=== PATIENT | female | born 1990 | race American Indian/Alaskan Native ===

== ENCOUNTER 2016-08-24 08:54 | Emergency (ER) | payer MEDICAID, OTHER ==
[2016-08-24 09:29] VITALS: BP 141/84
--- NOTE | 2016-08-24 09:39 | Emergency Department Report ---
Chief Complaint: Fall Stated Complaint: RT LEG PAIN Time Seen by Provider: 08/24/16 09:36 - HPI History of Present Illness: Patient here reported that she fell and injured her right leg and now she is having pain. - ROS Review of Systems: All systems are negative unless stated in HPI above. - Exam Vital Signs: Vital Signs 08/24/16 09:24 Temperature 98.6 F Pulse Rate 81 Respiratory 16 Rate Blood Pressure 141/84 O2 Sat by Pulse 100 Oximetry Physical Exam: General: This is a 26-year-old female well-nourished well-developed in no acute distress. EXT: No clubbing cyanosis or edema +2 pulses in all extremities. No neurovascular compromise. Patient limping and tender to palpate to right mid to upper leg. MSE screening note: Focused history and physical exam performed. Due to findings the following was ordered: ED Medical Decision Making - Medical Decision Making MDM: Patient taken to fast track room #37. Awaiting x-ray. Patient was seen by MSE provider and screened. ED Disposition for MSE Condition: Stable
--- NOTE | 2016-08-24 10:12 | Emergency Department Report ---
HPI - General Chief Complaint: Fall Time Seen by Provider: 08/24/16 09:36 - HPI HPI: She is a 26-year-old female presents to ED complaining of right anterior leg pain times today. Patient states she was at home today when she tripped over her child's toy. Patient states she fell forward and twisted her leg. Patient states pain is localized to right hurtado area. Patient denies calf tenderness bilaterally.Patient describes pain as throbbing in nature. She reports last menstrual period was 08/10/2016 states she is not Patient denies fevers/chills/nausea/vomiting/abdominal pain or any other problems. ED Past Medical Hx - Past Medical History Previous Medical History?: Yes Hx Arthritis: Yes Additional medical history: ARTHRITIS BOTH HIPS, SCOLIOSIS, Childbirth x 2 - Surgical History Past Surgical History?: Yes Additional Surgical History: C SECTION x 2 - Social History Smoking Status: Never Smoker Substance Use Type: Alcohol, Non Opiate Pain - Medications Home Medications: Home Medications Medication Instructions Recorded Confirmed Last Taken Type Hyoscyamine Subl [Levsin Sl] 0.125 mg SL Q4HR PRN #12 tablet 06/25/13 Unknown Rx Promethazine [Phenergan] 25 mg PO Q6H PRN #12 tablet 06/25/13 Unknown Rx metroNIDAZOLE [Metrogel] 60 gm TP BID 7 Days 09/02/14 Unknown Rx Cyclobenzaprine [Flexeril] 10 mg PO QHS PRN #16 tablet 08/24/16 Unknown Rx Ibuprofen [Motrin] 800 mg PO Q8HR PRN #30 tablet 08/24/16 Unknown Rx ED Review of Systems ROS: Stated complaint: RT LEG PAIN Other details as noted in HPI Constitutional: denies: chills, fever Eyes: denies: eye pain, eye discharge, vision change ENT: denies: ear pain, throat pain, dental pain, hearing loss Respiratory: denies: cough, shortness of breath, wheezing Cardiovascular: denies: chest pain, palpitations Endocrine: no symptoms reported Gastrointestinal: denies: abdominal pain, nausea, diarrhea Genitourinary: denies: urgency, dysuria, discharge Musculoskeletal: denies: back pain, joint swelling, arthralgia Skin: denies: rash, lesions Neurological: denies: headache, weakness, paresthesias Psychiatric: denies: anxiety, depression Hematological/Lymphatic: denies: easy bleeding, easy bruising Physical Exam - Physical Exam Vital Signs: Vital Signs 08/24/16 09:24 Temperature 98.6 F Pulse Rate 81 Respiratory 16 Rate Blood Pressure 141/84 O2 Sat by Pulse 100 Oximetry Physical Exam: GENERAL: Alert and oriented x3, no apparent distress, Normal Gait, atraumatic. HEAD: Head is normocephalic and a-traumatic. EYES: Extra ocular muscles are intact. Pupils are equal, round, and reactive to light and accommodation. NOSE: Nose symetrical, Nontender,Nares appeared normal. NECK: Supple. Non edematous, No carotid bruits. No lymphadenopathy or thyromegaly. No C-spine tenderness LUNGS: Symetrical with respiration, No wheezing, no rales or crackles, CTAB. HEART: S1, S2 present, regular rate and rhythm without murmur, no rubs, no gallops. ABDOMEN: No organomegaly was noted,Positive bowel sounds, soft, and non- distended. . Nontender to palpation on all Quadrants, NO CVA tenderness. EXTREMITIES/MUSCULOSKELETAL: No cyanosis, clubbing, rash, lesions or edema. Full ROM bilaterally. Pedal Pulses 2+ bilaterally. LE 5+ strength bilaterally , straight leg raise negative bilaterally. Tenderness bilaterally. Mild tenderness to palpation of right hurtado. Knee joint is intact. Ankle joint is intact with full range of motion. NEUROLOGIC: No focal Deficit, Cranial nerves II through XII are grossly intact. No loss of sensation, SKIN: Warm and dry, No lesions, No ulceration or induration present. ED Course Vital Signs 08/24/16 09:24 Temperature 98.6 F Pulse Rate 81 Respiratory 16 Rate Blood Pressure 141/84 O2 Sat by Pulse 100 Oximetry ED Medical Decision Making - Radiology Data Radiology results: report reviewed, image reviewed RIGHT TIBIA/FIBULA: History: Right leg pain after fall AP and lateral views of the right tibia/fibula demonstrate normal mineralization and contours for this patient's age. No destructive changes are noted and the adjacent soft tissues are normal. IMPRESSION: Unremarkable right tibia/fibula. Transcribed By: TTR Dictated By: VANI MENDOZA JR, MD Electronically Authenticated By: VANI MENDOZA JR, MD Signed Date/Time: 08/24/16 1042 - Medical Decision Making 26-year-old female presents with leg pain status post fall ED course: X-ray ordered. Patient received 800 mg of Motrin and Flexeril ED. X-ray result shows no acute fracture or dislocation joints intact. Discussed findings with patient. Discussed the patient follow up with primary care physician. Vital signs are stable patient is in no acute distress Patient understands instructions given. Critical care attestation.: If time is entered above; I have spent that time in minutes in the direct care of this critically ill patient, excluding procedure time. ED Disposition Clinical Impression: Myalgia Fall Qualifiers: Encounter type: initial encounter Qualified Code(s): W19.XXXA - Unspecified fall, initial encounter Disposition: DISCHARGED TO HOME OR SELFCARE Is pt being admited?: No Does the pt Need Aspirin: No Condition: Stable Instructions: Trigger Point Pain (ED), Musculoskeletal Pain (ED), Heat Pack Application (ED) Prescriptions: Cyclobenzaprine [Flexeril] 10 mg PO QHS PRN #16 tablet PRN Reason: Muscle Spasm Ibuprofen [Motrin] 800 mg PO Q8HR PRN #30 tablet PRN Reason: Pain Referrals: PRIMARY CARE, [Primary Care Provider] - 3-5 Days [facility] [Outside] - 3-5 Days [facility] [Outside] - 3-5 Days Forms: Accompanied Note, Work/School Release Form(ED) Time of Disposition: 10:40
[2016-08-24] MEDS ORDERED: MOTRIN PO ONE (10:42)
[2016-08-24] MEDS ORDERED: FLEXERIL PO ONE (10:42)
--- NOTE | 2016-08-24 10:50 | XRay Report ---
RIGHT TIBIA/FIBULA: History: Right leg pain after fall AP and lateral views of the right tibia/fibula demonstrate normal mineralization and contours for this patient's age. No destructive changes are noted and the adjacent soft tissues are normal. IMPRESSION: Unremarkable right tibia/fibula.
== END 2016-08-24 11:32 | disposition home or self-care (01) ==
LOC: ED 08:54
DX: M79.661 Pain in right lower leg (principal); M19.90 Unspecified osteoarthritis, unspecified site; W01.198A Fall on same level from slipping, tripping and stumbling with subsequent striking against other object, initial encounter; Y93.89 Activity, other specified; Y92.89 Other specified places as the place of occurrence of the external cause; Y99.8 Other external cause status; Z91.018 Allergy to other foods; Z88.8 Allergy status to other drugs, medicaments and biological substances; Z88.1 Allergy status to other antibiotic agents

== ENCOUNTER 2016-10-13 13:53 | Emergency (ER) | payer OTHER ==
[2016-10-13 15:56] VITALS: BP 130/84
--- NOTE | 2016-10-13 16:24 | Emergency Department Report ---
Entered by GRISELDA ROJAS, acting as scribe for MALATHI CASTELLON NP. ED General Adult HPI - General Chief complaint: Skin Rash Stated complaint: RASH UNDER BREAST/RT EAR PAIN Time Seen by Provider: 10/13/16 15:52 Source: patient Mode of arrival: Ambulatory Limitations: No Limitations - History of Present Illness Initial comments: 26 y/o female, c/o painful, spreading rash under the breast bilaterally for 1 week, no aggravating or alleviating factors, constant since onset, moderate in severity. Associated throat pain and right ear pain also beginning 1 week ago but denies fever, nausea, vomiting, and drainage from the rash or her ear. Patient works at an [employer], requiring her to walk around outside for long periods during the day -: week(s) (1) Location: head (right ear pain), chest (rash) Radiation: non-radiation Consistency: constant Improves with: none Worsens with: none Associated Symptoms: rash, other (ear pain). denies: chest pain, fever/chills, headaches, loss of appetite, nausea/vomiting, shortness of breath Treatments Prior to Arrival: none - Related Data Previous Rx's Medication Instructions Recorded Last Taken Type Hyoscyamine Subl [Levsin Sl] 0.125 mg SL Q4HR PRN #12 tablet 06/25/13 Unknown Rx Promethazine [Phenergan] 25 mg PO Q6H PRN #12 tablet 06/25/13 Unknown Rx metroNIDAZOLE [Metrogel] 60 gm TP BID 7 Days 09/02/14 Unknown Rx Cyclobenzaprine [Flexeril] 10 mg PO QHS PRN #16 tablet 08/24/16 Unknown Rx Ibuprofen [Motrin] 800 mg PO Q8HR PRN #30 tablet 08/24/16 Unknown Rx Azithromycin [Zithromax] 250 mg PO DAILY #6 tablet 10/13/16 Unknown Rx Ibuprofen [Motrin] 600 mg PO Q8H PRN #15 tablet 10/13/16 Unknown Rx Nystatin [Nystop Powder] 1 applicatio TP TID 7 Days 10/13/16 Unknown Rx Allergies Allergy/AdvReac Type Severity Reaction Status Date / Time amoxicillin [Amoxicillin] Allergy Swelling Verified 10/13/16 15:57 diphenhydramine HCl Allergy Swelling Verified 10/13/16 15:57 [From Benadryl] shellfish derived AdvReac Rash Verified 10/13/16 15:57 PEANUT BUTTER Allergy Swelling Uncoded 10/13/16 15:57 TOMATOES Allergy Swelling Uncoded 10/13/16 15:57 ED Review of Systems Comment: All other systems reviewed and negative Constitutional: denies: chills, fever Eyes: denies: eye pain, eye discharge ENT: ear pain (right ear), throat pain. denies: hearing loss Respiratory: denies: cough, shortness of breath, wheezing Cardiovascular: denies: chest pain Gastrointestinal: denies: abdominal pain, nausea, vomiting, diarrhea Genitourinary: denies: abnormal menses (lmp 1 week ago ) Musculoskeletal: denies: back pain Skin: rash (under the breast bilaterally) Neurological: denies: headache, weakness, numbness ED Past Medical Hx - Past Medical History Hx Arthritis: Yes Additional medical history: ARTHRITIS BOTH HIPS, SCOLIOSIS, Childbirth x 2 - Surgical History Additional Surgical History: C SECTION x 2 - Social History Smoking Status: Never Smoker Substance Use Type: Alcohol, Non Opiate Pain - Medications Home Medications: Home Medications Medication Instructions Recorded Confirmed Last Taken Type Hyoscyamine Subl [Levsin Sl] 0.125 mg SL Q4HR PRN #12 tablet 06/25/13 Unknown Rx Promethazine [Phenergan] 25 mg PO Q6H PRN #12 tablet 06/25/13 Unknown Rx metroNIDAZOLE [Metrogel] 60 gm TP BID 7 Days 09/02/14 Unknown Rx Cyclobenzaprine [Flexeril] 10 mg PO QHS PRN #16 tablet 08/24/16 Unknown Rx Ibuprofen [Motrin] 800 mg PO Q8HR PRN #30 tablet 08/24/16 Unknown Rx Azithromycin [Zithromax] 250 mg PO DAILY #6 tablet 10/13/16 Unknown Rx Ibuprofen [Motrin] 600 mg PO Q8H PRN #15 tablet 10/13/16 Unknown Rx Nystatin [Nystop Powder] 1 applicatio TP TID 7 Days 10/13/16 Unknown Rx ED Physical Exam - General Limitations: No Limitations General appearance: alert, in no apparent distress - Head Head exam: Present: atraumatic, normocephalic, normal inspection - Eye Eye exam: Present: normal appearance, PERRL, EOMI. Absent: conjunctival injection Pupils: Present: normal accommodation - ENT ENT exam: Present: normal orophraynx, mucous membranes moist, normal external ear exam, other (L TM WNL ). Absent: TM's normal bilaterally - Expanded ENT Exam Expanded Ear exam: Absent: auricular trauma TM/Canal exam: Erythema: Right TM, Effusion: Right TM, Loss of Landmarks: Right TM Mouth exam: Absent: drooling, trismus Throat exam: Positive: normal inspection. Negative: tonsillar erythema, tonsillomegaly, tonsillar exudate - Neck Neck exam: Present: normal inspection, full ROM. Absent: tenderness, meningismus, lymphadenopathy - Respiratory Respiratory exam: Present: normal lung sounds bilaterally. Absent: respiratory distress, wheezes, decreased breath sounds - Cardiovascular Cardiovascular Exam: Present: regular rate, normal rhythm, normal heart sounds. Absent: rubs, gallop - GI/Abdominal GI/Abdominal exam: Present: soft, normal bowel sounds. Absent: distended, tenderness, diminished bowel sounds - Extremities Exam Extremities exam: Present: normal inspection, full ROM, normal capillary refill. Absent: tenderness - Back Exam Back exam: Present: normal inspection, full ROM. Absent: tenderness, CVA tenderness (R), CVA tenderness (L), paraspinal tenderness, vertebral tenderness - Neurological Exam Neurological exam: Present: alert, oriented X3, normal gait - Psychiatric Psychiatric exam: Present: normal affect, normal mood. Absent: depressed - Skin Skin exam: Present: warm, intact, rash (under the breast), erythema (excoriated rash under both breasts, no vesicles, no urtircaria ) ED Course Vital Signs 10/13/16 15:53 Temperature 98.3 F Pulse Rate 71 Respiratory 17 Rate Blood Pressure 130/84 O2 Sat by Pulse 100 Oximetry - Reevaluation(s) Reevaluation #1: 10/13/16 16:22 PT aware of dx and plan of care. pt has no questions at this time. - Pulse Oximetry Interpretation Digit-Finger Initial Pulse Oximetry Readin Actions Taken: none ED Medical Decision Making - Differential Diagnosis om, oe, cerumen, shingles, candidasis Critical Care Time: No ED Disposition Clinical Impression: Candidiasis of breast Right otitis media Qualifiers: Otitis media type: unspecified Chronicity: unspecified Qualified Code(s): H66.91 - Otitis media, unspecified, right ear Disposition: DC-01 TO HOME OR SELFCARE Is pt being admited?: No Does the pt Need Aspirin: No Condition: Stable Instructions: Diaper Rash (ED), Otitis Media (ED), Acute Rash (ED) Additional Instructions: keep the skin under your breasts clean and dry follow up with your PCP in 3-5 days Return to the ED for worsening or concerns Prescriptions: Azithromycin [Zithromax] 250 mg PO DAILY #6 tablet Ibuprofen [Motrin] 600 mg PO Q8H PRN #15 tablet PRN Reason: Pain Nystatin [Nystop Powder] 1 applicatio TP TID 7 Days Referrals: ROBERTO FLORES MD [Staff Physician] - 3-5 Days Forms: Work/School Release Form(ED) Time of Disposition: 16:23 This documentation as recorded by the BOB scott MATHEW,accurately reflects the service I personally performed and the decisions made by ,MALATHI CASTELLON, [employer].
== END 2016-10-13 16:46 | disposition home or self-care (01) ==
LOC: ED 13:53
DX: H66.91 Otitis media, unspecified, right ear (principal); B37.89 Other sites of candidiasis; M41.9 Scoliosis, unspecified; M19.90 Unspecified osteoarthritis, unspecified site; Z88.1 Allergy status to other antibiotic agents; Z88.8 Allergy status to other drugs, medicaments and biological substances; Z91.018 Allergy to other foods
CPT/HCPCS: 99282

== ENCOUNTER 2017-03-23 23:31 | Emergency (ER) | payer OTHER ==
--- NOTE | 2017-03-24 02:46 | Emergency Department Report ---
ED General Adult HPI - General Chief complaint: Allergic Reaction Stated complaint: ALLERGIC REACTION Time Seen by Provider: 03/24/17 02:30 Source: patient Mode of arrival: Ambulatory Limitations: No Limitations - History of Present Illness Initial comments: Patient is a 26-year-old female no significant past medical history who presents with allergic reaction. Patient was seen by her PCP for a UTI and was given nitrofurantoin for she states that when she took the nitrofurantoin she started getting a swollen throat and she was having pain all over her body. Patient states that she has no shortness of breath or any chest pain patient's symptoms are moderate she is complaining of sore throat and myalgias she says the myalgias are a 6 out of 10 at the makes it better or worse. Severity scale (0 -10): 10 - Related Data Previous Rx's Medication Instructions Recorded Last Taken Type Hyoscyamine Subl [Levsin Sl] 0.125 mg SL Q4HR PRN #12 tablet 06/25/13 Unknown Rx Promethazine [Phenergan] 25 mg PO Q6H PRN #12 tablet 06/25/13 Unknown Rx metroNIDAZOLE [Metrogel] 60 gm TP BID 7 Days gel..gram. 09/02/14 Unknown Rx Cyclobenzaprine [Flexeril] 10 mg PO QHS PRN #16 tablet 08/24/16 Unknown Rx Ibuprofen [Motrin] 800 mg PO Q8HR PRN #30 tablet 08/24/16 Unknown Rx Azithromycin [Zithromax] 250 mg PO DAILY #6 tablet 10/13/16 Unknown Rx Ibuprofen [Motrin] 600 mg PO Q8H PRN #15 tablet 10/13/16 Unknown Rx Nystatin [Nystop Powder] 1 applicatio TP TID 7 Days bottle 10/13/16 Unknown Rx Famotidine [Pepcid] 20 mg PO QDAY #5 tablet 03/24/17 Unknown Rx Sulfamethoxazole/Trimethoprim 1 each PO BID #10 tablet 03/24/17 Unknown Rx [Bactrim DS TAB] predniSONE [Deltasone] 20 mg PO QDAY #5 tab 03/24/17 Unknown Rx Allergies Allergy/AdvReac Type Severity Reaction Status Date / Time amoxicillin [Amoxicillin] Allergy Swelling Verified 10/13/16 15:57 diphenhydramine HCl Allergy Swelling Verified 10/13/16 15:57 [From Benadryl] shellfish derived AdvReac Rash Verified 10/13/16 15:57 PEANUT BUTTER Allergy Swelling Uncoded 10/13/16 15:57 TOMATOES Allergy Swelling Uncoded 10/13/16 15:57 ED Review of Systems ROS: Stated complaint: ALLERGIC REACTION Other details as noted in HPI Constitutional: denies: chills, fever Eyes: denies: eye pain, eye discharge, vision change ENT: throat pain. denies: ear pain Respiratory: denies: cough, shortness of breath, wheezing Cardiovascular: denies: chest pain, palpitations Endocrine: no symptoms reported Gastrointestinal: denies: abdominal pain, nausea, diarrhea Genitourinary: denies: urgency, dysuria, discharge Musculoskeletal: myalgia. denies: back pain, joint swelling, arthralgia Skin: denies: rash, lesions Neurological: denies: headache, weakness, paresthesias Psychiatric: denies: anxiety, depression Hematological/Lymphatic: denies: easy bleeding, easy bruising ED Past Medical Hx - Past Medical History Previous Medical History?: Yes Hx Arthritis: Yes Additional medical history: ARTHRITIS BOTH HIPS, SCOLIOSIS, Childbirth x 2 - Surgical History Past Surgical History?: Yes Additional Surgical History: C SECTION x 2 - Social History Smoking Status: Never Smoker Substance Use Type: None - Medications Home Medications: Home Medications Medication Instructions Recorded Confirmed Last Taken Type Hyoscyamine Subl [Levsin Sl] 0.125 mg SL Q4HR PRN #12 tablet 06/25/13 Unknown Rx Promethazine [Phenergan] 25 mg PO Q6H PRN #12 tablet 06/25/13 Unknown Rx metroNIDAZOLE [Metrogel] 60 gm TP BID 7 Days gel..gram. 09/02/14 Unknown Rx Cyclobenzaprine [Flexeril] 10 mg PO QHS PRN #16 tablet 08/24/16 Unknown Rx Ibuprofen [Motrin] 800 mg PO Q8HR PRN #30 tablet 08/24/16 Unknown Rx Azithromycin [Zithromax] 250 mg PO DAILY #6 tablet 10/13/16 Unknown Rx Ibuprofen [Motrin] 600 mg PO Q8H PRN #15 tablet 10/13/16 Unknown Rx Nystatin [Nystop Powder] 1 applicatio TP TID 7 Days bottle 10/13/16 Unknown Rx Famotidine [Pepcid] 20 mg PO QDAY #5 tablet 03/24/17 Unknown Rx Sulfamethoxazole/Trimethoprim 1 each PO BID #10 tablet 03/24/17 Unknown Rx [Bactrim DS TAB] predniSONE [Deltasone] 20 mg PO QDAY #5 tab 03/24/17 Unknown Rx ED Physical Exam - General Limitations: No Limitations ED Course Vital Signs 03/23/17 03/23/17 03/24/17 23:35 23:47 01:42 Temperature 98.3 F 98.3 F 100.2 F H Pulse Rate 89 89 94 H Respiratory 18 18 15 Rate Blood Pressure 148/89 Blood Pressure 148/89 124/67 [Right] O2 Sat by Pulse 99 99 100 Oximetry 03/24/17 03/24/17 03/24/17 01:55 02:20 02:26 Temperature Pulse Rate 100 H 115 H Respiratory 15 19 25 H Rate Blood Pressure Blood Pressure [Right] O2 Sat by Pulse 100 99 99 Oximetry 03/24/17 03/24/17 03/24/17 02:30 02:36 02:40 Temperature Pulse Rate 107 H 109 H 109 H Respiratory 19 21 19 Rate Blood Pressure 134/72 134/72 Blood Pressure [Right] O2 Sat by Pulse 100 100 99 Oximetry 03/24/17 03/24/17 03/24/17 02:45 02:50 02:56 Temperature Pulse Rate 109 H 109 H 108 H Respiratory 13 13 17 Rate Blood Pressure 126/73 126/73 126/73 Blood Pressure [Right] O2 Sat by Pulse 100 99 100 Oximetry 03/24/17 03/24/17 03/24/17 03:00 03:06 03:18 Temperature Pulse Rate 112 H 117 H Respiratory 22 21 Rate Blood Pressure 126/73 127/67 127/67 Blood Pressure [Right] O2 Sat by Pulse 99 99 Oximetry 03/24/17 03/24/17 03/24/17 03:20 03:26 03:30 Temperature Pulse Rate 109 H 110 H 110 H Respiratory 15 17 20 Rate Blood Pressure 126/72 126/72 127/67 Blood Pressure [Right] O2 Sat by Pulse 100 99 100 Oximetry 03/24/17 03/24/17 03/24/17 03:36 03:40 03:46 Temperature Pulse Rate 105 H 107 H 111 H Respiratory 20 19 24 Rate Blood Pressure 127/67 127/67 127/67 Blood Pressure [Right] O2 Sat by Pulse 100 100 100 Oximetry 03/24/17 03/24/17 03/24/17 03:50 03:56 04:00 Temperature Pulse Rate 139 H 105 H 106 H Respiratory 17 19 19 Rate Blood Pressure 127/67 127/67 127/67 Blood Pressure [Right] O2 Sat by Pulse 99 100 100 Oximetry 03/24/17 03/24/17 03/24/17 04:06 04:10 04:15 Temperature Pulse Rate 120 H 109 H 111 H Respiratory 17 20 19 Rate Blood Pressure 127/67 132/68 129/73 Blood Pressure [Right] O2 Sat by Pulse 100 100 100 Oximetry 03/24/17 03/24/17 03/24/17 04:20 04:22 04:24 Temperature Pulse Rate 110 H 109 H 112 H Respiratory 20 20 19 Rate Blood Pressure 129/73 129/73 129/73 Blood Pressure [Right] O2 Sat by Pulse 100 100 100 Oximetry 03/24/17 03/24/17 03/24/17 04:26 04:28 04:30 Temperature Pulse Rate 110 H 118 H 110 H Respiratory 20 21 19 Rate Blood Pressure 129/73 129/73 128/77 Blood Pressure [Right] O2 Sat by Pulse 100 100 99 Oximetry 03/24/17 03/24/17 03/24/17 04:32 04:34 04:36 Temperature Pulse Rate 111 H 119 H 112 H Respiratory 19 17 19 Rate Blood Pressure 128/77 128/77 128/77 Blood Pressure [Right] O2 Sat by Pulse 100 100 100 Oximetry 03/24/17 03/24/17 03/24/17 04:38 04:40 04:42 Temperature Pulse Rate 112 H 118 H 111 H Respiratory 20 17 20 Rate Blood Pressure 128/77 128/77 128/77 Blood Pressure [Right] O2 Sat by Pulse 100 99 100 Oximetry 03/24/17 03/24/17 03/24/17 04:44 04:46 04:48 Temperature Pulse Rate 112 H 114 H 111 H Respiratory 19 19 20 Rate Blood Pressure 128/77 129/66 129/66 Blood Pressure [Right] O2 Sat by Pulse 100 100 99 Oximetry 03/24/17 03/24/17 03/24/17 04:50 04:52 04:54 Temperature Pulse Rate 113 H 112 H 113 H Respiratory 21 19 19 Rate Blood Pressure 129/66 129/66 129/66 Blood Pressure [Right] O2 Sat by Pulse 100 100 100 Oximetry 03/24/17 04:58 Temperature 98.6 F Pulse Rate 113 H Respiratory 19 Rate Blood Pressure Blood Pressure 129/60 [Right] O2 Sat by Pulse 99 Oximetry ED Medical Decision Making - Lab Data Result diagrams: 03/24/17 03:00 03/24/17 03:00 Lab Results 03/24/17 03/24/17 Range/Units 03:00 03:00 WBC 5.5 (4.5-11.0) K/mm3 RBC 5.04 H (3.65-5.03) M/mm3 Hgb 11.2 (10.1-14.3) gm/dl Hct 35.6 (30.3-42.9) % MCV 71 L (79-97) fl MCH 22 L (28-32) pg MCHC 31 (30-34) % RDW 15.1 (13.2-15.2) % Plt Count 159 (140-440) K/mm3 Add Manual Diff Complete Total Counted 100 Seg Neutrophils % Analyst Seg Neuts % (Manual) 87.0 H (40.0-70.0) % Band Neutrophils % 7.0 % Lymphocytes % (Manual) 5.0 L (13.4-35.0) % Reactive Lymphs % (Man) 0 % Monocytes % (Manual) 1.0 (0.0-7.3) % Eosinophils % (Manual) 0 (0.0-4.3) % Basophils % (Manual) 0 (0.0-1.8) % Metamyelocytes % 0 % Myelocytes % 0 % Promyelocytes % 0 % Blast Cells % 0 % Nucleated RBC % Not Reportable Seg Neutrophils # Man 4.8 (1.8-7.7) K/mm3 Band Neutrophils # 0.4 K/mm3 Lymphocytes # (Manual) 0.3 L (1.2-5.4) K/mm3 Abs React Lymphs (Man) 0.0 K/mm3 Monocytes # (Manual) 0.1 (0.0-0.8) K/mm3 Eosinophils # (Manual) 0.0 (0.0-0.4) K/mm3 Basophils # (Manual) 0.0 (0.0-0.1) K/mm3 Metamyelocytes # 0.0 K/mm3 Myelocytes # 0.0 K/mm3 Promyelocytes # 0.0 K/mm3 Blast Cells # 0.0 K/mm3 WBC Morphology Not Reportable Hypersegmented Neuts Not Reportable Hyposegmented Neuts Not Reportable Hypogranular Neuts Not Reportable Smudge Cells Not Reportable Toxic Granulation Not Reportable Toxic Vacuolation Not Reportable Dohle Bodies Not Reportable Pelger-Huet Anomaly Not Reportable Stanford Rods Not Reportable Platelet Estimate Consistent w auto Clumped Platelets Not Reportable Plt Clumps, EDTA Not Reportable Large Platelets Not Reportable Giant Platelets Not Reportable Platelet Satelliting Not Reportable Plt Morphology Comment Not Reportable RBC Morphology Not Reportable Dimorphic RBCs Not Reportable Polychromasia Not Reportable Hypochromasia 1+ Poikilocytosis Not Reportable Anisocytosis 1+ Microcytosis Not Reportable Macrocytosis Not Reportable Spherocytes Not Reportable Pappenheimer Bodies Not Reportable Sickle Cells Not Reportable Target Cells Not Reportable Tear Drop Cells Not Reportable Ovalocytes Not Reportable Helmet Cells Not Reportable Mag[place] Bodies Not Reportable Macon Rings Not Reportable Penelope Cells Not Reportable Bite Cells Not Reportable Crenated Cell Not Reportable Elliptocytes Few Acanthocytes (Spur) Not Reportable Rouleaux Not Reportable Hemoglobin C Crystals Not Reportable Schistocytes Not Reportable Malaria parasites Not Reportable Herbie Bodies Not Reportable Hem Pathologist Commnt No Sodium 138 (137-145) mmol/L Potassium 3.8 (3.6-5.0) mmol/L Chloride 102.7 (98-107) mmol/L Carbon Dioxide 20 L (22-30) mmol/L Anion Gap 19 mmol/L BUN 17 (7-17) mg/dL Creatinine 0.5 L (0.7-1.2) mg/dL Estimated GFR > 60 ml/min BUN/Creatinine Ratio 34 % Glucose 130 H (65-100) mg/dL Calcium 8.7 (8.4-10.2) mg/dL Total Bilirubin 0.60 (0.1-1.2) mg/dL AST 77 H (5-40) units/L ALT 63 H (7-56) units/L Alkaline Phosphatase 65 (35-129) units/L Total Protein 7.3 (6.3-8.2) g/dL Albumin 4.0 (3.9-5) g/dL Albumin/Globulin Ratio 1.2 % - Medical Decision Making Medical diagnosis: Allergic reaction differential medical diagnoses: Anaphylactoid reaction, angioedema, hyponatremia , peripheral edema, UTI Patient IV fluids and IV Pepcid IV steroids and oral Bactrim and I'll get CBC, CMP and monitor Patient is feeling better after fluids patient's tachycardia has resolved patient states she will follow-up with her primary care doctor and gave patient an additional verbal discharge instructions. Critical care attestation.: If time is entered above; I have spent that time in minutes in the direct care of this critically ill patient, excluding procedure time. ED Disposition Clinical Impression: Throat pain Allergic reaction Qualifiers: Encounter type: initial encounter Qualified Code(s): T78.40XA - Allergy, unspecified, initial encounter Disposition: TO HOME OR SELFCARE Is pt being admited?: No Does the pt Need Aspirin: No Condition: Stable Instructions: Urticaria (ED), Anaphylaxis (ED), Allergies (ED) Prescriptions: Famotidine [Pepcid] 20 mg PO QDAY #5 tablet predniSONE [Deltasone] 20 mg PO QDAY #5 tab Sulfamethoxazole/Trimethoprim [Bactrim DS TAB] 1 each PO BID #10 tablet Referrals: KRYSTEN MOORE MD [Primary Care Provider] - 3-5 Days Forms: Work/School Release Form(ED)
[2017-03-24] MEDS ORDERED: PEPCID IV ONE (02:49)
[2017-03-24] MEDS ORDERED: NACL 0.9% 1000 ML 1,000 ML IV ONE ×2 (02:49→04:38)
[2017-03-24 03:17] LABS: Hematocrit 35.6 % (30.3-42.9); Hemoglobin 11.2 gm/dl (10.1-14.3); Mean Corpuscular HGB Conc 31 % (30-34); Mean Corpuscular Hemoglobin 22 pg (28-32); Mean Corpuscular Volume 71 fl (79-97); Platelet Count 159 K/mm3 (140-440); Red Blood Count 5.04 M/mm3 (3.65-5.03); Red Cell Distribution Width 15.1 % (13.2-15.2); White Blood Count 5.5 K/mm3 (4.5-11.0)
[2017-03-24 03:34] LABS: Alanine Aminotransferase 63 units/L (7-56); Albumin/Globulin Ratio 1.2 %; Alkaline Phosphatase 65 units/L (35-129); Anion Gap 19 mmol/L; BUN/Creatinine Ratio 34; Blood Urea Nitrogen 17 mg/dL (7-17); Calcium 8.7 mg/dL (8.4-10.2); Carbon Dioxide 20 mmol/L (22-30); Chloride 102.7 mmol/L (98-107); Glucose 130 mg/dL (65-100); Potassium 3.8 mmol/L (3.6-5.0); Sodium 138 mmol/L (137-145); Total Protein 7.3 g/dL (6.3-8.2)
[2017-03-24 04:13] LABS: Anisocytosis 1+; Basophils % (Manual) 0 % (0.0-1.8); Blastocytes % (Manual) 0 %; Diff Status Complete; Elliptocytes Few; Eosinophils % (Manual) 0 % (0.0-4.3); Hypochromasia 1+; Platelet Estimate Consistent w Auto
[2017-03-24] MEDS ORDERED: TORADOL IV ONE (04:22)
[2017-03-24 04:59] VITALS: BP 129/60
[2017-03-24] MEDS ORDERED: BACTRIM DS PO ONE (05:13)
== END 2017-03-24 05:48 | disposition home or self-care (01) ==
LOC: ED 23:31
DX: T78.40XA Allergy, unspecified, initial encounter (principal); R07.0 Pain in throat; M19.90 Unspecified osteoarthritis, unspecified site; Z88.1 Allergy status to other antibiotic agents; Z91.010 Allergy to peanuts; Z91.013 Allergy to seafood; Z91.018 Allergy to other foods; X58.XXXA Exposure to other specified factors, initial encounter
CPT/HCPCS: 36415; 80053; 85007; 85025; 96361; 96374; 96375; 99283; J1885; J2930; J7030

== ENCOUNTER 2017-07-14 21:47 | Emergency (ER) | payer OTHER ==
[2017-07-14 23:58] VITALS: BP 134/84
[2017-07-15] MEDS ORDERED: MOTRIN PO ONE (03:37)
[2017-07-15] MEDS ORDERED: DECADRON IM ONE (03:37)
--- NOTE | 2017-07-15 03:41 | Emergency Department Report ---
ED Rash HPI - HPI Chief Complaint: Skin Rash Stated Complaint: LT ARM SWELLING Time Seen by Provider: 07/15/17 03:26 Duration: 1 week Location: Upper Extremities (left) Suspected Cause: Unknown Rash Symptoms: Yes Itching, No Facial Swelling, No Tongue/Oral Swelling, No Breathing Difficulties, No Choking Sensation, No Wheezing/Dyspnea, No Peeling, No Blistering, No Fever, No Lightheaded, No Malaise, No Myalgias Severity: severe Other History: 27-year-old -[place] female comes in for complaint of redness and tenderness lesions to her left upper arm 1 week. Patient thinks that she's gotten bitten by insect while doing a home visit for taxes. Patient reports he has multiple allergies. She is allergic to penicillin and Benadryl shellfish. Patient reports a past medical history of rheumatoid arthritis. She takes no medications she's denied any chest pain shortness of breathing difficulty swallowing nausea vomiting. ED Review of Systems ROS: Stated complaint: LT ARM SWELLING Other details as noted in HPI Constitutional: denies: chills, fever Eyes: denies: eye pain, eye discharge, vision change ENT: denies: ear pain, throat pain Respiratory: denies: cough, shortness of breath, wheezing Cardiovascular: denies: chest pain, palpitations Endocrine: no symptoms reported Gastrointestinal: denies: abdominal pain, nausea, diarrhea Genitourinary: denies: urgency, dysuria, discharge Musculoskeletal: denies: back pain, joint swelling, arthralgia Skin: lesions (left upper arm). denies: rash Neurological: denies: headache, weakness, paresthesias Psychiatric: denies: anxiety, depression Hematological/Lymphatic: denies: easy bleeding, easy bruising ED Past Medical Hx - Past Medical History Hx Arthritis: Yes Additional medical history: ARTHRITIS BOTH HIPS, SCOLIOSIS, - Surgical History Additional Surgical History: C SECTION x 2 - Social History Smoking Status: Never Smoker Substance Use Type: None, Alcohol - Medications Home Medications: Home Medications Medication Instructions Recorded Confirmed Last Taken Type Hyoscyamine Subl [Levsin Sl] 0.125 mg SL Q4HR PRN #12 tablet 06/25/13 Unknown Rx Promethazine [Phenergan] 25 mg PO Q6H PRN #12 tablet 06/25/13 Unknown Rx metroNIDAZOLE [Metrogel] 60 gm TP BID 7 Days gel..gram. 09/02/14 Unknown Rx Cyclobenzaprine [Flexeril] 10 mg PO QHS PRN #16 tablet 08/24/16 Unknown Rx Ibuprofen [Motrin] 800 mg PO Q8HR PRN #30 tablet 08/24/16 Unknown Rx Azithromycin [Zithromax] 250 mg PO DAILY #6 tablet 10/13/16 Unknown Rx Nystatin [Nystop Powder] 1 applicatio TP TID 7 Days bottle 10/13/16 Unknown Rx Famotidine [Pepcid] 20 mg PO QDAY #5 tablet 03/24/17 Unknown Rx Sulfamethoxazole/Trimethoprim 1 each PO BID #10 tablet 03/24/17 Unknown Rx [Bactrim DS TAB] Ibuprofen [Motrin 600 MG tab] 600 mg PO Q8H PRN #15 tablet 07/15/17 Unknown Rx predniSONE [Deltasone] 20 mg PO QDAY #5 tab 07/15/17 Unknown Rx Rash Exam - Exam General: Vital signs noted. No distress. Alert and acting appropriately. HEENT: No Periorbital Edema, No Conjuctival Injection, No Chemosis, No Perioral Edema, No Tongue Edema, No Uvular Edema, No Compromised Airway, No Drooling Lungs: Yes Good Air Exchange, No Wheezes, No Ronchi, No Stridor, No Cough, No Labored Respirations, No Retractions, No Use of Accessory Muscles, No Other Abnormal Lung Sounds Heart: Yes Regular, No Murmur Skin: Yes Tenderness, Yes Erythema, Yes Edema, No Urticarial Rash, No Maculopapular Rash, No Morbilliform rash, No Encrustations, No Other Other: Positive: Abdomen Normal, Neurologic Normal, Musculoskeletal Normal ED Course Vital Signs 07/14/17 23:52 Temperature 98.2 F Pulse Rate 95 H Respiratory 16 Rate Blood Pressure 134/84 O2 Sat by Pulse 100 Oximetry ED Medical Decision Making - Medical Decision Making Patient has been evaluated by this provider fast track. I discussed the patient we can try a steroid injection and ibuprofen. Patient has multiple allergies to Benadryl amoxicillin shellfish. Discussed the patient she can follow with her primary care provider. Patient verbalized understanding. Critical care attestation.: If time is entered above; I have spent that time in minutes in the direct care of this critically ill patient, excluding procedure time. ED Disposition Clinical Impression: Insect bite Qualifiers: Encounter type: initial encounter Qualified Code(s): W57.XXXA - Bitten or stung by nonvenomous insect and other nonvenomous arthropods, initial encounter Disposition: DC-01 TO HOME OR SELFCARE Is pt being admited?: No Does the pt Need Aspirin: No Condition: Stable Instructions: Insect Bite or Sting (ED) Additional Instructions: Please take medication as prescribed. Please follow up with her primary care provider if symptoms persist or gets worse. Prescriptions: Ibuprofen [Motrin 600 MG tab] 600 mg PO Q8H PRN #15 tablet PRN Reason: Pain predniSONE [Deltasone] 20 mg PO QDAY #5 tab Referrals: PRIYANKA WEN MD [Primary Care Provider] - 3-5 Days your,provider [Other] - 3-5 Days Forms: Work/School Release Form(ED)
== END 2017-07-15 04:10 | disposition home or self-care (01) ==
LOC: ED 21:47
DX: S40.862A Insect bite (nonvenomous) of left upper arm, initial encounter (principal); M19.90 Unspecified osteoarthritis, unspecified site; W57.XXXA Bitten or stung by nonvenomous insect and other nonvenomous arthropods, initial encounter; Y93.89 Activity, other specified; Y92.89 Other specified places as the place of occurrence of the external cause; Y99.8 Other external cause status
CPT/HCPCS: 96372; 99282; J1100

== ENCOUNTER 2018-11-25 20:04 | Emergency (ER) | payer SELFPAY ==
[2018-11-25 20:14] VITALS: BP 124/84
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
[2018-11-25 21:24] LABS: HCG Qualitative,Urine Negative (Negative)
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
--- NOTE | 2018-11-25 22:00 | XRay Report ---
CLINICAL DATA: shoulder pain, fracture TECHNICAL DATA: AP internal, AP external, and Y views were obtained of the shoulder. FINDINGS: There is no acute fracture. The glenoid fossa humeral head articulation is normal. There is no acromi oclavicular joint widening or offset. The coracoclavicular distance is normal. There are no significa nt degenerative changes. IMPRESSION: No acute radiographic abnormality. Signer Name: Michael Chery MD Signed: 11/25/2018 9:55 PM Workstation Name: [id number]
[2018-11-25] MEDS ORDERED: IBUPROFEN PO ONE (22:57)
== END 2018-11-26 03:30 | disposition home or self-care (01) ==
LOC: ED 20:04
DX: S00.83XA Contusion of other part of head, initial encounter (principal); S40.012A Contusion of left shoulder, initial encounter; M19.90 Unspecified osteoarthritis, unspecified site; Z79.899 Other long term (current) drug therapy; Z88.1 Allergy status to other antibiotic agents; Z88.2 Allergy status to sulfonamides; Z91.018 Allergy to other foods; Z91.013 Allergy to seafood; Z91.010 Allergy to peanuts; Y08.89XA Assault by other specified means, initial encounter; Y93.9 Activity, unspecified; Y92.89 Other specified places as the place of occurrence of the external cause; Y99.8 Other external cause status
CPT/HCPCS: 70486; 81025

== ENCOUNTER 2019-01-27 08:23 | Emergency (ER) | payer OTHER ==
[2019-01-27] MEDS ORDERED: ACETAMINOPHEN 325 MG TAB PO ONE (08:38)
[2019-01-27] MEDS ORDERED: ACETAMINOPHEN 325 MG TAB ONE (08:42)
[2019-01-27] MEDS ORDERED: ONDANSETRON 4 MG/2 ML INJ IV ONE (08:52)
[2019-01-27] MEDS ORDERED: SODIUM CHLORIDE 0.9% 1000 ML 1,000 ML IV ONE (08:52)
--- NOTE | 2019-01-27 08:57 | Emergency Department Report ---
HPI - General Chief Complaint: Nausea/Vomiting/Diarrhea Time Seen by Provider: 01/27/19 08:45 - HPI HPI: 28-year-old -[place] female presents to the emergency department from home with complaint of fever, nausea, vomiting and an unwitnessed episode of passing out. The patient says that she recently finished a ten-day course of antibiotics for an ear infection. She then followed up with her primary care physician again and says that she had a positive "spit culture" and was placed on a second course of antibiotics, cefprozil. She took this antibiotic last night, along with hydroxychloroquine, and began having the nausea, vomiting, chills. This is the first time that she has taken the hydroxychloroquine for her lupus. She thought it might be an allergic reaction so she took some Claritin. This morning the patient was laying on the couch trying to get rest, was having chills and body aches, and then says that she woke up on the floor. Now she also has a headache. She denies any vision change, slurred speech or any neurological deficits. Her primary care physician is Dr. Katelyn Mcdaniel. No recent travel or sick contacts at home. She denies any tobacco or illicit drug use. ED Past Medical Hx - Past Medical History Previous Medical History?: Yes Hx Arthritis: Yes Additional medical history: ARTHRITIS BOTH HIPS, SCOLIOSIS, - Surgical History Past Surgical History?: Yes Additional Surgical History: C SECTION x 2 - Social History Smoking Status: Never Smoker Substance Use Type: None - Medications Home Medications: Home Medications Medication Instructions Recorded Confirmed Last Taken Type Hyoscyamine Subl [Levsin Sl] 0.125 mg SL Q4HR PRN #12 tablet 06/25/13 Unknown Rx Promethazine [Phenergan] 25 mg PO Q6H PRN #12 tablet 06/25/13 Unknown Rx metroNIDAZOLE [Metrogel] 60 gm TP BID 7 Days gel..gram. 09/02/14 Unknown Rx Cyclobenzaprine [Flexeril] 10 mg PO QHS PRN #16 tablet 08/24/16 Unknown Rx Ibuprofen [Motrin] 800 mg PO Q8HR PRN #30 tablet 08/24/16 Unknown Rx Azithromycin [Zithromax] 250 mg PO DAILY #6 tablet 10/13/16 Unknown Rx Nystatin [Nystop Powder] 1 applicatio TP TID 7 Days bottle 10/13/16 Unknown Rx Famotidine [Pepcid] 20 mg PO QDAY #5 tablet 03/24/17 Unknown Rx Sulfamethoxazole/Trimethoprim 1 each PO BID #10 tablet 03/24/17 Unknown Rx [Bactrim DS TAB] predniSONE [Deltasone] 20 mg PO QDAY #5 tab 07/15/17 Unknown Rx Ibuprofen [Motrin] 600 mg PO Q8H PRN #20 tablet 05/25/18 Unknown Rx Acetaminophen/Codeine [Tylenol 1 tab PO Q6H PRN #12 tab 11/25/18 Unknown Rx /Codeine # 3 tab] Ibuprofen [Motrin 600 MG tab] 600 mg PO Q8H PRN #15 tablet 11/25/18 Unknown Rx Ondansetron [Zofran Odt] 4 mg PO Q8HR PRN #15 tab.rapdis 01/27/19 Unknown Rx ED Review of Systems ROS: Stated complaint: FEVER/CHILLS/BLACKOUT/VOMIT Other details as noted in HPI Comment: All other systems reviewed and negative Constitutional: chills, fever Eyes: denies: eye pain, vision change ENT: denies: throat pain, congestion Respiratory: cough. denies: shortness of breath Cardiovascular: syncope. denies: chest pain, edema Gastrointestinal: nausea, vomiting Genitourinary: denies: dysuria, discharge Musculoskeletal: myalgia. denies: joint swelling Skin: denies: rash, lesions Neurological: headache. denies: weakness, numbness, paresthesias Physical Exam - Physical Exam Vital Signs: Vital Signs 01/27/19 08:35 Temperature 101.3 F H Pulse Rate 127 H Respiratory 16 Rate Blood Pressure 141/72 [Left] O2 Sat by Pulse 97 Oximetry Physical Exam: GENERAL: The patient is well-developed well-nourished. HENT: Normocephalic. Atraumatic. Patient has moist mucous membranes. EYES: Extraocular motions are intact. Pupils equal reactive to light bilaterally. No nystagmus. NECK: Supple. Trachea is midline. CHEST/LUNGS: Clear to auscultation. There is no respiratory distress noted. HEART/CARDIOVASCULAR: Regular. There is mild tachycardia. There is no murmur. ABDOMEN: Abdomen is soft, nontender. Patient has normal bowel sounds. There is no abdominal distention. SKIN: Skin is warm and dry. NEURO: The patient is awake, alert, and oriented. The patient is cooperative. The patient has no focal neurologic deficits. Normal speech. Cranial nerves II through XII grossly intact. MUSCULOSKELETAL: There is no tenderness or deformity. There is no limitation range of motion. There is no evidence of acute injury. ED Course Vital Signs 01/27/19 08:35 Temperature 101.3 F H Pulse Rate 127 H Respiratory 16 Rate Blood Pressure 141/72 [Left] O2 Sat by Pulse 97 Oximetry ED Medical Decision Making - Lab Data Result diagrams: 01/27/19 09:03 01/27/19 09:03 - EKG Data -: EKG Interpreted by Me EKG shows normal: sinus rhythm, axis, intervals, QRS complexes, ST-T waves Rate: normal - EKG Data When compared to previous EKG there are: previous EKG unavailable Interpretation: normal EKG - Radiology Data Radiology results: report reviewed, image reviewed interpreted by me: Chest x-ray does not show any acute process. There are no pleural effusions, ob vious pneumonia and there is no pneumothorax. Abdominal x-ray shows nonspecific nonobstructive bowel gas CT HEAD WITHOUT CONTRAST INDICATION / CLINICAL INFORMATION: headache. Febrile illness. Episode of loss of consciousness this a.m. TECHNIQUE: All CT scans at this location are performed using CT dose reduction for ALARA by means of automated exposure control. COMPARISON: None available. FINDINGS: HEMORRHAGE: No evidence of intracranial hemorrhage or extra-axial fluid collecti on. EXTRA-AXIAL SPACES: Cortical sulci, sylvian fissures and basilar cisterns have an unremarkable appearance. VENTRICULAR SYSTEM: The ventricular system is of normal size and configuration. CEREBRAL PARENCHYMA: No areas of abnormal brain parenchymal attenuation are identified. There is no indication of recent infarction. MIDLINE SHIFT OR HERNIATION: There is no mass effect. CEREBELLUM / BRAINSTEM: Brainstem and cerebellum have an unremarkable appearance. INTRACRANIAL VESSELS:No abnormalities are identified on this noncontrast head CT. ORBITS: visualized portions of the orbits have an unremarkable appearance. SOFT TISSUES of HEAD: No significant abnormality. CALVARIUM: Evaluation of bone windows reveals no abnormalities. PARANASAL SINUSES / MASTOID AIR CELLS: Paranasal sinuses are free from inflammatory mucosal disease. Mastoid air cells are poorly pneumatized secondary to lack of elevated mastoid air cells. IMPRESSION: 1. Normal head CT without contrast. - Medical Decision Making This patient presents to the emergency department with a complaint of fever, chills, nausea, vomiting and then a syncopal episode this morning. Since my initial examination, the patient is awake, alert, oriented and in no acute distress. She does not have any focal, motor or sensory deficits and cranial nerves are intact. Labs have been unremarkable including CBC, metabolic panel, rapid flu. She had a CT scan of the head without contrast that did not show any bleed, shift, mass, ischemia, or any other acute process. EKG does not show any signs of ST elevation [place], dysrhythmia or ischemia. The patient was given some Tylenol and then Toradol which provided resolution of her fever and great improvement in her overall symptoms. She appears safe for discharge home at this time. She has been instructed to follow-up with her primary care physician and to return to the ER with any worsening of her symptoms or any acute distress. - Differential Diagnosis influenza, viral syndrome, dysrhythmia Critical Care Time: No Critical care attestation.: If time is entered above; I have spent that time in minutes in the direct care of this critically ill patient, excluding procedure time. ED Disposition Clinical Impression: Viral syndrome Fever Qualifiers: Fever type: unspecified Qualified Code(s): R50.9 - Fever, unspecified Syncope Qualifiers: Syncope type: unspecified Qualified Code(s): R55 - Syncope and collapse Disposition: DC- TO HOME OR SELFCARE Is pt being admited?: No Condition: Stable Instructions: Fever in Adults (ED), Syncope (ED), Viral Syndrome (ED) Additional Instructions: Please follow-up with your primary care physician in the next few days. Return to the emergency Department with any further episodes of passing out, worsening of your symptoms, or with any acute distress. You can take Tylenol every 4 hours and ibuprofen every 6 hours, using weight- based dosing on the back of the bottle, as needed for fever or discomfort. Prescriptions: Ondansetron [Zofran Odt] 4 mg PO Q8HR PRN #15 tab.rapdis PRN Reason: Nausea Referrals: PRIMARY CARE, [Primary Care Provider] - 2-3 Days Time of Disposition: 13:09
[2019-01-27 09:25] LABS: Eosinophils % (Auto) 0.7 % (0.0-4.3); Hematocrit 35.9 % (30.3-42.9); Hemoglobin 11.3 gm/dl (10.1-14.3); Lymphocytes # (Auto) 0.5 K/mm3 (1.2-5.4); Lymphocytes % (Auto) 7.9 % (13.4-35.0); Mean Corpuscular HGB Conc 32 % (30-34); Mean Corpuscular Volume 72 fl (79-97); Monocytes # (Auto) 0.2 K/mm3 (0.0-0.8); Platelet Count 189 K/mm3 (140-440); Red Blood Count 4.99 M/mm3 (3.65-5.03); Red Cell Distribution Width 14.2 % (13.2-15.2)
[2019-01-27 09:43] LABS: Alanine Aminotransferase 46 units/L (7-56); Albumin 3.9 g/dL (3.9-5); BUN/Creatinine Ratio 14; Blood Urea Nitrogen 10 mg/dL (7-17); Calcium 8.8 mg/dL (8.4-10.2); Hemolysis Index 5
--- NOTE | 2019-01-27 10:33 | XRay Report ---
Chest and abdominal series. 01/27/2019. HISTORY: Cough. Nausea and vomiting. Chest one view: Heart size is normal. The lungs are clear. Two-view abdomen: Gas is scattered throughout the abdomen in a nonobstructive fashion. Mildly distend ed small bowel at the mid abdomen is nonspecific. Negative for free air or suspicious calcification. Incidentally noted is fusion at the right hip and degenerative change/prominent acetabular protrusion on the left. IMPRESSION: Nonspecific bowel gas pattern without evidence of obstruction. A gastroenteritis-type pro cess is favored. Signer Name: Daren Castellano MD Signed: 01/27/2019 10:29 AM Workstation Name: [id number]
[2019-01-27] MEDS ORDERED: KETOROLAC 30 MG/1 ML INJ IV ONE (10:57)
[2019-01-27 11:44] LABS: Bilirubin,Urine NEG (Negative); Blood,Urine NEG (Negative); Color,Urine Yellow (Yellow); Mucus,Urine FEW /HPF; Urobilinogen,Urine < 2.0 mg/dL (<2.0)
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
[2019-01-27 11:53] LABS: WBC,Urine < 1.0 /HPF (0.0-6.0)
[2019-01-27 13:02] VITALS: BP 95/46
== END 2019-01-27 13:58 | disposition home or self-care (01) ==
LOC: ED 08:23
DX: B34.9 Viral infection, unspecified (principal); R55 Syncope and collapse; R11.2 Nausea with vomiting, unspecified; M32.9 Systemic lupus erythematosus, unspecified; Z79.899 Other long term (current) drug therapy; Z88.1 Allergy status to other antibiotic agents; Z88.8 Allergy status to other drugs, medicaments and biological substances; Z79.1 Long term (current) use of non-steroidal anti-inflammatories (NSAID)
CPT/HCPCS: 36415; 70450; 74022; 80053; 81001; 83690; 84443; 84703; 85025; 87400; 93005; 93010; 96361; 96374; 96375; 99285; J1885; J2405; J7030

== ENCOUNTER 2021-03-08 08:50 | Emergency (ER) | payer SELFPAY ==
--- NOTE | 2021-03-08 09:32 | Emergency Department Report ---
- General Chief Complaint: Upper Respiratory Infection Stated Complaint: COUGH,AND HEADACHE X1 WK Time Seen by Provider: 03/08/21 09:24 Source: patient Mode of arrival: Ambulatory Limitations: No Limitations - History of Present Illness Initial Comments: Patient is 30 years old female with history of lupus. Patient presented to the ER complaining of runny nose, cough, congestion and shortness of breath for the last 2 days. Patient denied any fever or chills. No nausea or vomiting. No chest pain. Patient stated that she did not receive COVID-19 vaccine. MD Complaint: cough, rhinorrhea, nasal congestion -: days(s) (2) Severity: moderate Consistency: constant Associated Symptoms: rhinorrhea - Related Data Previous Rx's Medication Instructions Recorded Last Taken Type Hyoscyamine Subl [Levsin Sl] 0.125 mg SL Q4HR PRN #12 tablet 06/25/13 Unknown Rx Promethazine [Phenergan] 25 mg PO Q6H PRN #12 tablet 06/25/13 Unknown Rx metroNIDAZOLE [Metrogel] 60 gm TP BID 7 Days gel..gram. 09/02/14 Unknown Rx Cyclobenzaprine [Flexeril] 10 mg PO QHS PRN #16 tablet 08/24/16 Unknown Rx Ibuprofen [Motrin] 800 mg PO Q8HR PRN #30 tablet 08/24/16 Unknown Rx Azithromycin [Zithromax] 250 mg PO DAILY #6 tablet 10/13/16 Unknown Rx Nystatin [Nystop Powder] 1 applicatio TP TID 7 Days bottle 10/13/16 Unknown Rx Famotidine [Pepcid] 20 mg PO QDAY #5 tablet 03/24/17 Unknown Rx Sulfamethoxazole/Trimethoprim 1 each PO BID #10 tablet 03/24/17 Unknown Rx [Bactrim DS TAB] predniSONE [Deltasone] 20 mg PO QDAY #5 tab 07/15/17 Unknown Rx Ibuprofen [Motrin] 600 mg PO Q8H PRN #20 tablet 05/25/18 Unknown Rx Acetaminophen/Codeine [Tylenol 1 tab PO Q6H PRN #12 tab 11/25/18 Unknown Rx /Codeine # 3 tab] Ibuprofen [Motrin 600 MG tab] 600 mg PO Q8H PRN #15 tablet 11/25/18 Unknown Rx Ondansetron [Zofran Odt] 4 mg PO Q8HR PRN #15 tab.rapdis 01/27/19 Unknown Rx Allergies Allergy/AdvReac Type Severity Reaction Status Date / Time amoxicillin [Amoxicillin] Allergy Swelling Verified 10/13/16 15:57 diphenhydramine HCl Allergy Swelling Verified 10/13/16 15:57 [From Benadryl] Sulfa (Sulfonamide Allergy Anaphylaxis Verified 11/25/18 20:07 Antibiotics) shellfish derived AdvReac Rash Verified 10/13/16 15:57 PEANUT BUTTER Allergy Swelling Uncoded 10/13/16 15:57 TOMATOES Allergy Swelling Uncoded 10/13/16 15:57 ED Review of Systems ROS: Stated complaint: COUGH,AND HEADACHE X1 WK Other details as noted in HPI Comment: All other systems reviewed and negative Constitutional: denies: chills, diaphoresis Respiratory: cough. denies: shortness of breath, SOB with exertion, SOB at rest, wheezing Cardiovascular: denies: chest pain, palpitations Gastrointestinal: denies: abdominal pain, nausea, vomiting Musculoskeletal: denies: back pain Neurological: denies: headache, weakness, numbness, paresthesias, confusion ED Past Medical Hx - Past Medical History Previous Medical History?: Yes Hx Arthritis: Yes Additional medical history: ARTHRITIS BOTH HIPS, SCOLIOSIS, - Surgical History Past Surgical History?: Yes Additional Surgical History: C SECTION x 2 - Social History Smoking Status: Never Smoker Substance Use Type: None - Medications Home Medications: Home Medications Medication Instructions Recorded Confirmed Last Taken Type Hyoscyamine Subl [Levsin Sl] 0.125 mg SL Q4HR PRN #12 tablet 06/25/13 Unknown Rx Promethazine [Phenergan] 25 mg PO Q6H PRN #12 tablet 06/25/13 Unknown Rx metroNIDAZOLE [Metrogel] 60 gm TP BID 7 Days gel..gram. 09/02/14 Unknown Rx Cyclobenzaprine [Flexeril] 10 mg PO QHS PRN #16 tablet 08/24/16 Unknown Rx Ibuprofen [Motrin] 800 mg PO Q8HR PRN #30 tablet 08/24/16 Unknown Rx Azithromycin [Zithromax] 250 mg PO DAILY #6 tablet 10/13/16 Unknown Rx Nystatin [Nystop Powder] 1 applicatio TP TID 7 Days bottle 10/13/16 Unknown Rx Famotidine [Pepcid] 20 mg PO QDAY #5 tablet 03/24/17 Unknown Rx Sulfamethoxazole/Trimethoprim 1 each PO BID #10 tablet 03/24/17 Unknown Rx [Bactrim DS TAB] predniSONE [Deltasone] 20 mg PO QDAY #5 tab 07/15/17 Unknown Rx Ibuprofen [Motrin] 600 mg PO Q8H PRN #20 tablet 05/25/18 Unknown Rx Acetaminophen/Codeine [Tylenol 1 tab PO Q6H PRN #12 tab 11/25/18 Unknown Rx /Codeine # 3 tab] Ibuprofen [Motrin 600 MG tab] 600 mg PO Q8H PRN #15 tablet 11/25/18 Unknown Rx Ondansetron [Zofran Odt] 4 mg PO Q8HR PRN #15 tab.rapdis 01/27/19 Unknown Rx ED Physical Exam - General Limitations: No Limitations General appearance: alert, in no apparent distress - Head Head exam: Present: atraumatic, normocephalic, normal inspection - Eye Eye exam: Present: normal appearance, PERRL - ENT ENT exam: Present: normal exam, normal orophraynx, mucous membranes moist - Neck Neck exam: Present: normal inspection, full ROM. Absent: tenderness, meningismus - Respiratory Respiratory exam: Present: normal lung sounds bilaterally - Cardiovascular Cardiovascular Exam: Present: regular rate, normal rhythm, normal heart sounds - GI/Abdominal GI/Abdominal exam: Present: soft, normal bowel sounds. Absent: distended, tenderness, guarding, rebound, rigid, organomegaly, mass, bruit, pulsatile mass, hernia - Extremities Exam Extremities exam: Present: normal inspection, full ROM, normal capillary refill. Absent: tenderness - Back Exam Back exam: Present: normal inspection, full ROM. Absent: CVA tenderness (R), CVA tenderness (L) - Neurological Exam Neurological exam: Present: alert, oriented X3, CN II-XII intact - Psychiatric Psychiatric exam: Present: normal mood - Skin Skin exam: Present: warm, intact, normal color ED Course Vital Signs 03/08/21 09:16 Temperature 99.2 F Pulse Rate 86 Respiratory 20 Rate Blood Pressure 139/78 O2 Sat by Pulse 99 Oximetry ED Medical Decision Making - Lab Data Result diagrams: 03/08/21 10:03 03/08/21 10:03 - Radiology Data Radiology results: report reviewed - Medical Decision Making Patient is 30 years old female with history of lupus. Patient presented to the ER complaining of runny nose, cough, congestion and shortness of breath for the last 2 days. Patient denied any fever or chills. No nausea or vomiting. No chest pain. Patient stated that she did not receive COVID-19 vaccine. Patient remained stable in the ER with a stable vital sign. Oxygen saturation is 100% on room air. Labs reviewed and is unremarkable for which x-ray is negative for acute finding. Patient given prescription for Robitussin-AC and advised to follow-up with her primary care physician in the next 2 to 3 days and to return to the ER if she develop any new symptoms. Critical care attestation.: If time is entered above; I have spent that time in minutes in the direct care of this critically ill patient, excluding procedure time. ED Disposition Clinical Impression: Upper respiratory infection Disposition: HOME / SELF CARE / HOMELESS Is pt being admited?: No Condition: Stable Instructions: Viral Respiratory Infection, [id number] Referrals: PRIMARY CARE, [Primary Care Provider] - 3-5 Days
--- NOTE | 2021-03-08 09:58 | XRay Report ---
CHEST 2 VIEWS INDICATION / CLINICAL INFORMATION: SOB. COMPARISON: 01/27/2019 FINDINGS: SUPPORT DEVICES: None. HEART / MEDIASTINUM: No significant abnormality. LUNGS / PLEURA: No significant pulmonary or pleural abnormality. No pneumothorax. ADDITIONAL FINDINGS: No significant additional findings. IMPRESSION: 1. No acute findings. Signer Name: Leandro Patiño DO Signed: 03/08/2021 9:53 AM Workstation Name: [id number]
[2021-03-08 10:38] LABS: Basophils % (Auto) 0.3 % (0.0-1.8); Eosinophils # (Auto) 0.1 K/mm3 (0.0-0.4); Eosinophils % (Auto) 1.5 % (0.0-4.3); Hematocrit 36.3 % (30.3-42.9); Hemoglobin 11.6 gm/dl (10.1-14.3); Lymphocytes # (Auto) 1.4 K/mm3 (1.2-5.4); Lymphocytes % (Auto) 25.5 % (13.4-35.0); Mean Corpuscular HGB Conc 32 % (30-34); Mean Corpuscular Volume 72 fl (79-97); Monocytes # (Auto) 0.4 K/mm3 (0.0-0.8); Monocytes % (Auto) 7.6 % (0.0-7.3); Platelet Count 222 K/mm3 (140-440); Red Blood Count 5.05 M/mm3 (3.65-5.03)
[2021-03-08 10:55] LABS: Blood Urea Nitrogen 13 mg/dL (7-17); Calcium 8.9 mg/dL (8.4-10.2); Hemolysis Index 2
[2021-03-08 11:18] LABS: BUN/Creatinine Ratio 26
[2021-03-08 12:07] VITALS: BP 121/68
== END 2021-03-08 12:07 | disposition home or self-care (01) ==
LOC: ED 08:50
DX: J06.9 Acute upper respiratory infection, unspecified (principal); Z88.1 Allergy status to other antibiotic agents; Z88.2 Allergy status to sulfonamides; Z91.013 Allergy to seafood; Z79.899 Other long term (current) drug therapy
CPT/HCPCS: 36415; 71046; 80048; 85025; 99283